=== PATIENT | female | born 1935 | race Caucasian/White ===

== ENCOUNTER 2016-03-31 10:30 | Inpatient (IN) | payer OTHER, BC ==
[~2016-03-31] VITALS: Ht 172.7 cm; Wt 58.3 kg
[2016-03-31] VITALS (8 sets, daily range): BP systolic 120–149; BP diastolic 40–62
[2016-03-31] MEDS ORDERED: TELMISARTAN40 MG PO (11:13)
[2016-03-31] MEDS ORDERED: HYDROCHLOROTHIA25 MG PO (11:14)
[2016-03-31] MEDS ORDERED: ATORVASTATIN CA20 MG PO (11:14)
[2016-03-31] MEDS ORDERED: ASPIR 8181 M1 PO (11:14)
[2016-03-31 13:32] LABS: HEMATOCRIT 32.3 % (36.0-46.0); MCH 30.4 PG (29.0-34.0); MCHC 34.7 G/DL (30.0-36.0); MCV 87.5 FL (83-99); MEAN PLAT.VOLUME 9.6 uM^3 (9.5-12.4); PLATELET COUNT 327 K/uL (156-360); RBC DIS.WIDTH-CV 12.3 % (11.8-14.6); RBC DIS.WIDTH-SD 37.9 % (39-53); RED BLOOD COUNT 3.69 M/uL (3.80-5.20); WHITE BLOOD COUNT 22.9 K/uL (4.1-10.2)
[2016-03-31 13:35] LABS: EOSINOPHIL (%) 0 % (0-5); IMMATURE GRANULOCYTE (%) 0.2 % (0.0-0.7); IMMATURE GRANULOCYTE COUNT 0.5 K/uL; LYMPHOCYTE COUNT 1.2 K/uL (1.0-2.8); MONOCYTE COUNT 1.2 K/uL (0-0.8); NEUTROPHIL (%) 89.7 % (45-76); NEUTROPHIL COUNT 20.5 K/uL (1.8-6.4)
[2016-03-31 13:40] LABS: CHLORIDE 103 mEq/L (99-109); POTASSIUM 3.3 mEq/L (3.7-5.4); SODIUM 139 mEq/L (136-147)
[2016-03-31 13:42] LABS: GLUCOSE 145 mg/dL (70-99); INTER. NORMALIZED RATIO 1.1; PROTHROMBIN TIME 10.9 (9.2-11.2)
[2016-03-31 13:43] LABS: ANION GAP 15 MEQ/L (2-14)
[2016-03-31 13:46] LABS: GFR ESTIMATE (CALCULATED) 46 mL/min/
[2016-03-31 13:47] LABS: UREA NITROGEN (BUN) 24 mg/dL (9-23)
[2016-03-31] MEDS ORDERED: DAILY VITE1 EAC1 PO (13:55)
[2016-03-31] MEDS ORDERED: EYE VITAMIN-MI1 EACH PO (13:55)
[2016-03-31] MEDS ORDERED: COLACE100 MG PO (13:56)
[2016-03-31] MEDS ORDERED: RANITIDINE HCL150 MG PO (13:57)
[2016-03-31] MEDS ORDERED: TUMS500 MG PO (13:59)
[2016-03-31] MEDS ORDERED: VITAMIN D31000 UNIT PO (14:00)
[2016-03-31 17:03] LABS: METH RESISTANT S AUREUS PCR NEGATIVE (NEGATIVE)
[2016-03-31 17:10] LABS: PROBE CHECK PASS; SPECIMEN PROCESSING CONTROL PASS
[2016-04-01] VITALS (24 sets, daily range): BP systolic 100–151; BP diastolic 34–89
[2016-04-01 06:38] LABS: HEMATOCRIT 28.6 % (36.0-46.0); MCH 30.1 PG (29.0-34.0); MCHC 34.3 G/DL (30.0-36.0); MCV 87.7 FL (83-99); MEAN PLAT.VOLUME 10.1 uM^3 (9.5-12.4); PLATELET COUNT 272 K/uL (156-360); RBC DIS.WIDTH-CV 12.5 % (11.8-14.6); RBC DIS.WIDTH-SD 38.8 % (39-53); RED BLOOD COUNT 3.26 M/uL (3.80-5.20); WHITE BLOOD COUNT 18.9 K/uL (4.1-10.2)
[2016-04-01 07:36] LABS: ALKALINE PHOSPHATASE 69 IU/L (3-129); ANION GAP 14 MEQ/L (2-14); CHLORIDE 104 MEQ/L (99-109); GFR ESTIMATE (CALCULATED) 51 mL/min/; GLUCOSE 111 mg/dL (70-99); POTASSIUM 3.5 MEQ/L (3.7-5.4); SAMPLE HEMOLYSIS CHECK 0; SAMPLE ICTERIC CHECK 0; SAMPLE LIPEMIA CHECK 0; SODIUM 140 MEQ/L (136-147); TOTAL BILIRUBIN 0.5 MG/DL (0.0-1.0); UREA NITROGEN (BUN) 20 mg/dL (9-23)
[2016-04-01 15:59] LABS: Estimated Average Glucose 105 mg/dL (70-123); HEMOGLOBIN A1c (GLYCOHEMOGLOB) 5.3 % HGB (Below 5.7)
[2016-04-02] VITALS (11 sets, daily range): BP systolic 91–151; BP diastolic 30–49
[2016-04-02 05:49] LABS: HEMATOCRIT 26.1 % (36.0-46.0); MCH 29.8 PG (29.0-34.0); MCHC 33.3 G/DL (30.0-36.0); MCV 89.4 FL (83-99); MEAN PLAT.VOLUME 10.2 uM^3 (9.5-12.4); PLATELET COUNT 215 K/uL (156-360); RBC DIS.WIDTH-SD 42.1 % (39-53); RED BLOOD COUNT 2.92 M/uL (3.80-5.20); WHITE BLOOD COUNT 18.9 K/uL (4.1-10.2)
[2016-04-02 06:15] LABS: ANION GAP 8 MEQ/L (2-14); CHLORIDE 108 MEQ/L (99-109); GFR ESTIMATE (CALCULATED) > 59 mL/min/; GLUCOSE 94 mg/dL (70-99); POTASSIUM 3.9 MEQ/L (3.7-5.4); SAMPLE HEMOLYSIS CHECK 0; SAMPLE ICTERIC CHECK 0; SAMPLE LIPEMIA CHECK 0; SODIUM 141 MEQ/L (136-147); UREA NITROGEN (BUN) 17 mg/dL (9-23)
[2016-04-03] VITALS: BP 143/56
[2016-04-03 04:00] VITALS: BP 124/39
[2016-04-03 05:35] LABS: HEMATOCRIT 27.9 % (36.0-46.0); MCH 29.5 PG (29.0-34.0); MCV 89.4 FL (83-99); MEAN PLAT.VOLUME 10.2 uM^3 (9.5-12.4); PLATELET COUNT 203 K/uL (156-360); RBC DIS.WIDTH-SD 42.1 % (39-53); RED BLOOD COUNT 3.12 M/uL (3.80-5.20); WHITE BLOOD COUNT 14.6 K/uL (4.1-10.2)
[2016-04-03 05:55] LABS: ANION GAP 9 MEQ/L (2-14); CHLORIDE 108 MEQ/L (99-109); GFR ESTIMATE (CALCULATED) > 59 mL/min/; GLUCOSE 76 mg/dL (70-99); POTASSIUM 3.7 MEQ/L (3.7-5.4); SAMPLE HEMOLYSIS CHECK 0; SAMPLE ICTERIC CHECK 0; SAMPLE LIPEMIA CHECK 0; SODIUM 142 MEQ/L (136-147); UREA NITROGEN (BUN) 18 mg/dL (9-23)
[2016-04-03 08:00] VITALS: BP 157/53
[2016-04-03 12:00] VITALS: BP 165/55
[2016-04-03 16:00] VITALS: BP 161/53
[2016-04-03 20:00] VITALS: BP 168/45
[2016-04-04] VITALS (7 sets, daily range): BP systolic 160–197; BP diastolic 54–65
[2016-04-05] VITALS (10 sets, daily range): BP systolic 120–186; BP diastolic 38–66
[2016-04-05 06:00] LABS: HEMATOCRIT 32.2 % (36.0-46.0); MCH 30.2 PG (29.0-34.0); MCHC 34.5 G/DL (30.0-36.0); MCV 87.5 FL (83-99); RBC DIS.WIDTH-CV 12.6 % (11.8-14.6); RBC DIS.WIDTH-SD 40.4 % (39-53); RED BLOOD COUNT 3.68 M/uL (3.80-5.20); WHITE BLOOD COUNT 13.2 K/uL (4.1-10.2)
[2016-04-05 06:20] LABS: MEAN PLAT.VOLUME 10.1 uM^3 (9.5-12.4)
[2016-04-05 06:22] LABS: PLATELET COUNT 311 K/uL (156-360)
[2016-04-05 06:31] LABS: ANION GAP 8 MEQ/L (2-14); CHLORIDE 101 MEQ/L (99-109); GFR ESTIMATE (CALCULATED) > 59 mL/min/; POTASSIUM 3.5 MEQ/L (3.7-5.4); SAMPLE HEMOLYSIS CHECK 0; SAMPLE ICTERIC CHECK 0; SAMPLE LIPEMIA CHECK 0; SODIUM 139 MEQ/L (136-147); UREA NITROGEN (BUN) 11 mg/dL (9-23)
[2016-04-05 06:32] LABS: GLUCOSE 126 mg/dL (70-99)
[2016-04-05 15:55] LABS: MAGNESIUM 1.7 mg/dl (1.3-2.7)
[2016-04-06] VITALS (14 sets, daily range): BP systolic 130–198; BP diastolic 40–74
[2016-04-06 06:02] LABS: EOSINOPHIL (%) 1.2 % (0-5); EOSINOPHIL COUNT 0.2 K/uL (0-0.3); HEMATOCRIT 29.6 % (36.0-46.0); IMMATURE GRANULOCYTE (%) 0.5 % (0.0-0.7); IMMATURE GRANULOCYTE COUNT 0.1 K/uL; LYMPHOCYTE COUNT 1.7 K/uL (1.0-2.8); MCH 29.2 PG (29.0-34.0); MCHC 33.4 G/DL (30.0-36.0); MCV 87.3 FL (83-99); MEAN PLAT.VOLUME 9.8 uM^3 (9.5-12.4); MONOCYTE (%) 11.4 % (3-12); MONOCYTE COUNT 1.5 K/uL (0-0.8); NEUTROPHIL (%) 73.5 % (45-76); NEUTROPHIL COUNT 9.5 K/uL (1.8-6.4); NRBC (%) 0.2 /100 WBC (0-0); PLATELET COUNT 281 K/uL (156-360); RBC DIS.WIDTH-CV 12.9 % (11.8-14.6); RBC DIS.WIDTH-SD 41.4 % (39-53); RED BLOOD COUNT 3.39 M/uL (3.80-5.20); WHITE BLOOD COUNT 12.9 K/uL (4.1-10.2)
[2016-04-06 06:31] LABS: ALKALINE PHOSPHATASE 68 IU/L (3-129); ANION GAP 9 MEQ/L (2-14); CHLORIDE 104 MEQ/L (99-109); GFR ESTIMATE (CALCULATED) > 59 mL/min/; GLUCOSE 114 mg/dL (70-99); POTASSIUM 4.1 MEQ/L (3.7-5.4); SAMPLE HEMOLYSIS CHECK 0; SAMPLE ICTERIC CHECK 0; SAMPLE LIPEMIA CHECK 0; SODIUM 139 MEQ/L (136-147); UREA NITROGEN (BUN) 15 mg/dL (9-23)
[2016-04-06 06:32] LABS: TOTAL BILIRUBIN 0.7 MG/DL (0.0-1.0)
[2016-04-07] VITALS (12 sets, daily range): BP systolic 119–197; BP diastolic 43–81
[2016-04-07 05:57] LABS: MCH 28.9 PG (29.0-34.0); MCHC 32.8 G/DL (30.0-36.0); MCV 88.1 FL (83-99); MEAN PLAT.VOLUME 9.7 uM^3 (9.5-12.4); PLATELET COUNT 314 K/uL (156-360); RBC DIS.WIDTH-CV 13.2 % (11.8-14.6); RBC DIS.WIDTH-SD 42.6 % (39-53); RED BLOOD COUNT 3.29 M/uL (3.80-5.20); WHITE BLOOD COUNT 13.1 K/uL (4.1-10.2)
[2016-04-07 06:22] LABS: ANION GAP 8 MEQ/L (2-14); CHLORIDE 106 MEQ/L (99-109); GFR ESTIMATE (CALCULATED) 57 mL/min/; GLUCOSE 109 mg/dL (70-99); MAGNESIUM 1.7 mg/dl (1.3-2.7); POTASSIUM 3.8 MEQ/L (3.7-5.4); PREALBUMIN 12.5 mg/dL (10-40); SAMPLE HEMOLYSIS CHECK 0; SAMPLE ICTERIC CHECK 0; SAMPLE LIPEMIA CHECK 0; SODIUM 139 MEQ/L (136-147); UREA NITROGEN (BUN) 15 mg/dL (9-23)
[2016-04-08 00:13] VITALS: BP 160/60
[2016-04-08 06:16] LABS: EOSINOPHIL (%) 2.9 % (0-5); EOSINOPHIL COUNT 0.4 K/uL (0-0.3); HEMATOCRIT 27.9 % (36.0-46.0); IMMATURE GRANULOCYTE (%) 0.7 % (0.0-0.7); IMMATURE GRANULOCYTE COUNT 0.1 K/uL; LYMPHOCYTE COUNT 2.2 K/uL (1.0-2.8); MCH 29.1 PG (29.0-34.0); MCV 88.3 FL (83-99); MEAN PLAT.VOLUME 9.4 uM^3 (9.5-12.4); MONOCYTE (%) 9.4 % (3-12); MONOCYTE COUNT 1.2 K/uL (0-0.8); NEUTROPHIL (%) 68.8 % (45-76); NEUTROPHIL COUNT 8.4 K/uL (1.8-6.4); PLATELET COUNT 291 K/uL (156-360); RBC DIS.WIDTH-CV 13.3 % (11.8-14.6); RBC DIS.WIDTH-SD 43.1 % (39-53); RED BLOOD COUNT 3.16 M/uL (3.80-5.20); WHITE BLOOD COUNT 12.2 K/uL (4.1-10.2)
[2016-04-08 06:18] VITALS: BP 142/70
[2016-04-08 07:11] LABS: ALKALINE PHOSPHATASE 69 IU/L (3-129); ANION GAP 8 MEQ/L (2-14); CHLORIDE 105 MEQ/L (99-109); GFR ESTIMATE (CALCULATED) > 59 mL/min/; GLUCOSE 126 mg/dL (70-99); GLUCOSE 127 mg/dL (70-99); POTASSIUM 3.8 MEQ/L (3.7-5.4); SAMPLE HEMOLYSIS CHECK 0; SAMPLE ICTERIC CHECK 0; SAMPLE LIPEMIA CHECK 0; SODIUM 137 MEQ/L (136-147); SODIUM 138 MEQ/L (136-147); TRIGLYCERIDES 66 MG/DL (Normal: <150); UREA NITROGEN (BUN) 16 mg/dL (9-23)
[2016-04-08 07:20] LABS: MAGNESIUM 2.3 mg/dl (1.3-2.7); TOTAL BILIRUBIN 0.5 MG/DL (0.0-1.0)
[2016-04-08 08:32] VITALS: BP 138/52
[2016-04-08 17:18] VITALS: BP 154/76
[2016-04-08] MEDS ORDERED: ANTIVERT25 MG PO (17:49)
[2016-04-08] MEDS ORDERED: NIFEREX-150,FE150 MG PO (17:49)
[2016-04-08] MEDS ORDERED: CARDIZEM CD,CA240 MG PO (17:49)
[2016-04-08] MEDS ORDERED: METOCLOPRAMIDE10 MG PO (17:49)
[2016-04-08] MEDS ORDERED: APRESOLINE25 MG PO (17:49)
[2016-04-08] MEDS ORDERED: TRAMADOL HCL50 MG PO (17:49)
[2016-04-08] MEDS ORDERED: TYLENOL REGULA325 MG PO (17:49)
[2016-04-08 20:02] VITALS: BP 156/67
[2016-04-08 23:44] VITALS: BP 140/54
[2016-04-09 03:39] VITALS: BP 176/76
[2016-04-09 06:25] LABS: EOSINOPHIL (%) 1.1 % (0-5); EOSINOPHIL COUNT 0.1 K/uL (0-0.3); HEMATOCRIT 26.4 % (36.0-46.0); IMMATURE GRANULOCYTE (%) 0.6 % (0.0-0.7); IMMATURE GRANULOCYTE COUNT 0.1 K/uL; LYMPHOCYTE COUNT 1.5 K/uL (1.0-2.8); MCH 30.3 PG (29.0-34.0); MCHC 33.7 G/DL (30.0-36.0); MCV 89.8 FL (83-99); MEAN PLAT.VOLUME 9.9 uM^3 (9.5-12.4); MONOCYTE (%) 10.6 % (3-12); MONOCYTE COUNT 1.2 K/uL (0-0.8); NEUTROPHIL (%) 74.7 % (45-76); NEUTROPHIL COUNT 8.7 K/uL (1.8-6.4); PLATELET COUNT 284 K/uL (156-360); RBC DIS.WIDTH-CV 13.5 % (11.8-14.6); RED BLOOD COUNT 2.94 M/uL (3.80-5.20); WHITE BLOOD COUNT 11.6 K/uL (4.1-10.2)
[2016-04-09 06:48] LABS: ANION GAP 9 MEQ/L (2-14); CHLORIDE 107 MEQ/L (99-109); GFR ESTIMATE (CALCULATED) > 59 mL/min/; GLUCOSE 130 mg/dL (70-99); MAGNESIUM 2.2 mg/dl (1.3-2.7); POTASSIUM 4.3 MEQ/L (3.7-5.4); SAMPLE HEMOLYSIS CHECK 0; SAMPLE ICTERIC CHECK 0; SAMPLE LIPEMIA CHECK 0; SODIUM 140 MEQ/L (136-147); UREA NITROGEN (BUN) 23 mg/dL (9-23)
[2016-04-09 08:09] VITALS: BP 140/85
[2016-04-09 11:22] VITALS: BP 146/65
[2016-04-09] MEDS ORDERED: LOSARTAN POTASS50 MG PO (14:02)
[2016-04-09] MEDS ORDERED: SALINE FLUSH 1010 ML IV (14:03)
[2016-04-09] MEDS ORDERED: VITAMIN D31000 UNIT PO (14:06)
[2016-04-09] MEDS ORDERED: POLY-IRON150 MG PO (14:07)
[2016-04-09] MEDS ORDERED: TUMS500 MG PO (14:11)
[2016-04-09] MEDS ORDERED: ZOFRAN4 MG PO (14:57)
[2016-04-09] MEDS ORDERED: ZOFRAN4 MG/2 ML IM (14:57)
== END 2016-04-09 12:45 | DRG 86 ==
LOC: EME → EDBD 10:30 → 4WEST 14:21 → 3EAST 14:21 → EDOF 14:21 → 4WEST 15:38 → 3EAST 04-07 05:10
PROVIDERS: Emergency Medicine; Hospitalist; Internal Medicine; Internal Medicine Critical Care Medicine; Internal Medicine Pulmonary Disease; Physician Assistant; Surgery
PROC: F07M0ZZ Range of Motion and Joint Mobility Treatment of Musculoskeletal System - Whole Body (ICD-10-PCS; 2016-04-03)
PROC: 3E0436Z Introduction of Nutritional Substance into Central Vein, Percutaneous Approach (ICD-10-PCS; principal; 2016-04-07)
DX: S06.6X0A Traumatic subarachnoid hemorrhage without loss of consciousness, initial encounter (principal); E44.0 Moderate protein-calorie malnutrition; S06.5X1A Traumatic subdural hemorrhage with loss of consciousness of 30 minutes or less, initial encounter; S02.101A Fracture of base of skull, right side, initial encounter for closed fracture; E78.5 Hyperlipidemia, unspecified; W00.0XXA Fall on same level due to ice and snow, initial encounter; M19.90 Unspecified osteoarthritis, unspecified site; E87.6 Hypokalemia; K21.9 Gastro-esophageal reflux disease without esophagitis; R73.9 Hyperglycemia, unspecified; D64.9 Anemia, unspecified; I16.0 Hypertensive urgency; D72.829 Elevated white blood cell count, unspecified; H53.8 Other visual disturbances; I25.10 Atherosclerotic heart disease of native coronary artery without angina pectoris; I48.0 Paroxysmal atrial fibrillation; R11.2 Nausea with vomiting, unspecified; Z68.20 Body mass index [BMI] 20.0-20.9, adult; Z85.22 Personal history of malignant neoplasm of nasal cavities, middle ear, and accessory sinuses
CPT/HCPCS: 70450; 70486; 70553; 71010; 72125; 72131; 76770; 76937; 80048; 80053; 81003; 82040; 83036; 83735; 84100; 84134; 84478; 84630 90; 85025; 85027; 85610; 86850; 86900; 86901; 87641; 92523 GN; 93005; 93306; 97530 GO; 97530 GP; 97532 GN; 99281; 99285; J0360; J1953; J2270; J2405; J3475; J7030; J7040; J7050

== ENCOUNTER 2016-04-06 09:10 | Inpatient (IN) | payer OTHER, BC ==
[~2016-04-06] VITALS: Ht 172.7 cm; Wt 61.3 kg
[~2016-04-06 09:10] MED LIST: ASPIR 8181 M1 PO; ATORVASTATIN CA20 MG PO; COLACE100 MG PO; DAILY VITE1 EAC1 PO; EYE VITAMIN-MI1 EACH PO; HYDROCHLOROTHIA25 MG PO; RANITIDINE HCL150 MG PO; TELMISARTAN40 MG PO; TUMS500 MG PO; VITAMIN D31000 UNIT PO
[2016-04-08] MEDS ORDERED: ANTIVERT25 MG PO (17:49)
[2016-04-08] MEDS ORDERED: NIFEREX-150,FE150 MG PO (17:49)
[2016-04-08] MEDS ORDERED: TYLENOL REGULA325 MG PO (17:49)
[2016-04-08] MEDS ORDERED: CARDIZEM CD,CA240 MG PO (17:49)
[2016-04-08] MEDS ORDERED: METOCLOPRAMIDE10 MG PO (17:49)
[2016-04-08] MEDS ORDERED: APRESOLINE25 MG PO (17:49)
[2016-04-08] MEDS ORDERED: TRAMADOL HCL50 MG PO (17:49)
[2016-04-09 12:55] VITALS: BP 179/78
[2016-04-09] MEDS ORDERED: LOSARTAN POTASS50 MG PO (14:02)
[2016-04-09] MEDS ORDERED: SALINE FLUSH 1010 ML IV (14:03)
[2016-04-09] MEDS ORDERED: VITAMIN D31000 UNIT PO (14:06)
[2016-04-09] MEDS ORDERED: POLY-IRON150 MG PO (14:07)
[2016-04-09] MEDS ORDERED: TUMS500 MG PO (14:11)
[2016-04-09] MEDS ORDERED: ZOFRAN4 MG/2 ML IM (14:57)
[2016-04-09] MEDS ORDERED: ZOFRAN4 MG PO (14:57)
[2016-04-09 17:07] VITALS: BP 178/75
[2016-04-09 23:47] VITALS: BP 176/73
[2016-04-10 05:49] LABS: HEMATOCRIT 27.1 % (36.0-46.0); MCH 29.9 PG (29.0-34.0); MCHC 33.2 G/DL (30.0-36.0); MEAN PLAT.VOLUME 9.8 uM^3 (9.5-12.4); PLATELET COUNT 317 K/uL (156-360); RBC DIS.WIDTH-CV 13.6 % (11.8-14.6); RBC DIS.WIDTH-SD 44.6 % (39-53); RED BLOOD COUNT 3.01 M/uL (3.80-5.20); WHITE BLOOD COUNT 12.2 K/uL (4.1-10.2)
[2016-04-10 05:50] VITALS: BP 175/76
[2016-04-10 06:21] LABS: ALKALINE PHOSPHATASE 68 IU/L (3-129); ANION GAP 10 MEQ/L (2-14); CHLORIDE 108 MEQ/L (99-109); GFR ESTIMATE (CALCULATED) > 59 mL/min/; GLUCOSE 118 mg/dL (70-99); POTASSIUM 4.1 MEQ/L (3.7-5.4); SAMPLE HEMOLYSIS CHECK 0; SAMPLE ICTERIC CHECK 0; SAMPLE LIPEMIA CHECK 0; SODIUM 141 MEQ/L (136-147); TOTAL BILIRUBIN 0.4 MG/DL (0.0-1.0); UREA NITROGEN (BUN) 25 mg/dL (9-23)
[2016-04-10 07:55] LABS: MAGNESIUM 1.9 mg/dl (1.3-2.7)
[2016-04-10 07:57] VITALS: BP 134/60
[2016-04-10 13:40] VITALS: BP 154/69
[2016-04-10 16:03] VITALS: BP 136/74
[2016-04-11 04:26] LABS: CHLORIDE 109 mEq/L (99-109); MAGNESIUM 1.8 mg/dL (1.3-2.7); POTASSIUM 3.8 mEq/L (3.7-5.4); SODIUM 138 mEq/L (136-147)
[2016-04-11 04:28] LABS: GLUCOSE 142 mg/dL (70-99)
[2016-04-11 04:29] LABS: ANION GAP 10 MEQ/L (2-14)
[2016-04-11 04:32] LABS: GFR ESTIMATE (CALCULATED) > 59 mL/min/; UREA NITROGEN (BUN) 27 mg/dL (9-23)
[2016-04-11 05:45] VITALS: BP 169/72
[2016-04-11 16:30] VITALS: BP 151/66
[2016-04-12 05:46] VITALS: BP 147/65
[2016-04-12 06:05] LABS: EOSINOPHIL (%) 2.1 % (0-5); EOSINOPHIL COUNT 0.3 K/uL (0-0.3); HEMATOCRIT 24.9 % (36.0-46.0); IMMATURE GRANULOCYTE (%) 0.3 % (0.0-0.7); LYMPHOCYTE COUNT 1.9 K/uL (1.0-2.8); MCH 30.1 PG (29.0-34.0); MCHC 33.3 G/DL (30.0-36.0); MCV 90.2 FL (83-99); MEAN PLAT.VOLUME 9.4 uM^3 (9.5-12.4); MONOCYTE (%) 8.8 % (3-12); MONOCYTE COUNT 1.1 K/uL (0-0.8); NEUTROPHIL (%) 73.4 % (45-76); NEUTROPHIL COUNT 9.1 K/uL (1.8-6.4); PLATELET COUNT 297 K/uL (156-360); RBC DIS.WIDTH-CV 13.6 % (11.8-14.6); RBC DIS.WIDTH-SD 44.5 % (39-53); RED BLOOD COUNT 2.76 M/uL (3.80-5.20); WHITE BLOOD COUNT 12.5 K/uL (4.1-10.2)
[2016-04-12 06:31] LABS: ALKALINE PHOSPHATASE 81 IU/L (3-129); ANION GAP 9 MEQ/L (2-14); CHLORIDE 109 MEQ/L (99-109); DIRECT BILIRUBIN 0.1 mg/dL (0.0-0.3); GFR ESTIMATE (CALCULATED) > 59 mL/min/; GLUCOSE 112 mg/dL (70-99); POTASSIUM 4.2 MEQ/L (3.7-5.4); PREALBUMIN 15.2 mg/dL (10-40); SAMPLE HEMOLYSIS CHECK 0; SAMPLE ICTERIC CHECK 0; SAMPLE LIPEMIA CHECK 0; SODIUM 141 MEQ/L (136-147); TRIGLYCERIDES 64 MG/DL (Normal: <150); UREA NITROGEN (BUN) 28 mg/dL (9-23)
[2016-04-12 06:32] LABS: TOTAL BILIRUBIN 0.3 MG/DL (0.0-1.0)
[2016-04-12 09:30] VITALS: BP 138/63
[2016-04-12 15:47] VITALS: BP 120/56
[2016-04-13 04:49] LABS: CHLORIDE 110 mEq/L (99-109); POTASSIUM 4.4 mEq/L (3.7-5.4); SODIUM 137 mEq/L (136-147)
[2016-04-13 04:51] LABS: GLUCOSE 121 mg/dL (70-99)
[2016-04-13 04:53] LABS: ANION GAP 5 MEQ/L (2-14)
[2016-04-13 04:55] LABS: GFR ESTIMATE (CALCULATED) > 59 mL/min/
[2016-04-13 04:56] LABS: UREA NITROGEN (BUN) 33 mg/dL (9-23)
[2016-04-13 05:35] VITALS: BP 150/60
[2016-04-13 15:31] VITALS: BP 157/59
[2016-04-14 06:03] VITALS: BP 146/77
[2016-04-14 07:21] LABS: ANION GAP 8 MEQ/L (2-14); CHLORIDE 108 MEQ/L (99-109); GFR ESTIMATE (CALCULATED) > 59 mL/min/; GLUCOSE 95 mg/dL (70-99); MAGNESIUM 1.8 mg/dl (1.3-2.7); POTASSIUM 3.8 MEQ/L (3.7-5.4); SAMPLE HEMOLYSIS CHECK 0; SAMPLE ICTERIC CHECK 0; SAMPLE LIPEMIA CHECK 0; SODIUM 138 MEQ/L (136-147); UREA NITROGEN (BUN) 26 mg/dL (9-23)
[2016-04-14 14:44] LABS: URINE UREA NITROGEN 8333 MG/24 HR
[2016-04-14 15:10] VITALS: BP 128/61
[2016-04-15 05:05] VITALS: BP 146/66
[2016-04-15 15:20] VITALS: BP 119/53
[2016-04-16 05:35] LABS: HEMATOCRIT 25.5 % (36.0-46.0); MCH 29.7 PG (29.0-34.0); MCHC 32.9 G/DL (30.0-36.0); MCV 90.1 FL (83-99); RBC DIS.WIDTH-CV 13.1 % (11.8-14.6); RED BLOOD COUNT 2.83 M/uL (3.80-5.20); WHITE BLOOD COUNT 9.9 K/uL (4.1-10.2)
[2016-04-16 05:45] LABS: CHLORIDE 107 mEq/L (99-109); POTASSIUM 4.1 mEq/L (3.7-5.4); SODIUM 138 mEq/L (136-147)
[2016-04-16 05:47] VITALS: BP 143/87
[2016-04-16 05:47] LABS: GLUCOSE 127 mg/dL (70-99)
[2016-04-16 05:49] LABS: ANION GAP 8 MEQ/L (2-14); TOTAL BILIRUBIN 0.3 mg/dL (0.0-1.0)
[2016-04-16 05:51] LABS: ALKALINE PHOSPHATASE 147 IU/L (3-129); GFR ESTIMATE (CALCULATED) 57 mL/min/; MEAN PLAT.VOLUME 9.3 uM^3 (9.5-12.4); PLATELET COUNT 396 K/uL (156-360)
[2016-04-16 05:52] LABS: UREA NITROGEN (BUN) 18 mg/dL (9-23)
[2016-04-16 09:10] VITALS: BP 146/67
[2016-04-16 16:17] VITALS: BP 123/56
[2016-04-17 05:31] VITALS: BP 128/61
[2016-04-17 17:06] VITALS: BP 163/69
[2016-04-18 05:53] VITALS: BP 124/58
[2016-04-18 16:00] VITALS: BP 158/69
[2016-04-19 05:38] VITALS: BP 126/57
[2016-04-19 15:46] VITALS: BP 138/63
[2016-04-20 05:26] VITALS: BP 130/60
[2016-04-20 15:11] VITALS: BP 120/69
[2016-04-21 05:52] VITALS: BP 136/63
[2016-04-21] MEDS ORDERED: COLACE100 MG PO (14:31)
[2016-04-21] MEDS ORDERED: APRESOLINE25 MG PO (14:31)
[2016-04-21] MEDS ORDERED: DILTIAZEM 24HR180 MG PO (14:31)
[2016-04-21] MEDS ORDERED: ANTIVERT25 MG PO (14:31)
[2016-04-21] MEDS ORDERED: NIFEREX-150,FE150 MG PO (14:31)
[2016-04-21] MEDS ORDERED: LOSARTAN POTASS25 MG PO (14:31)
[2016-04-21 15:21] VITALS: BP 121/63
[2016-04-21 15:39] LABS: ALKALINE PHOSPHATASE 142 IU/L (3-129); ANION GAP 8 MEQ/L (2-14); CHLORIDE 103 MEQ/L (99-109); GFR ESTIMATE (CALCULATED) 36 mL/min/; GLUCOSE 104 mg/dL (70-99); POTASSIUM 4.4 MEQ/L (3.7-5.4); SAMPLE HEMOLYSIS CHECK 0; SAMPLE ICTERIC CHECK 0; SAMPLE LIPEMIA CHECK 0; SODIUM 138 MEQ/L (136-147); TOTAL BILIRUBIN 0.3 MG/DL (0.0-1.0); UREA NITROGEN (BUN) 23 mg/dL (9-23)
[2016-04-21 15:42] LABS: MCH 29.3 PG (29.0-34.0); MCHC 32.2 G/DL (30.0-36.0); MCV 90.9 FL (83-99); MEAN PLAT.VOLUME 9.6 uM^3 (9.5-12.4); PLATELET COUNT 417 K/uL (156-360); RBC DIS.WIDTH-CV 13.6 % (11.8-14.6); RBC DIS.WIDTH-SD 45.1 % (39-53); RED BLOOD COUNT 2.97 M/uL (3.80-5.20)
[2016-04-21 15:43] LABS: WHITE BLOOD COUNT 6.7 K/uL (4.1-10.2)
[2016-04-22 05:08] VITALS: BP 122/57
== END 2016-04-22 13:50 | disposition home health service (06) | DRG 945 ==
LOC: 3WEST 09:10
PROVIDERS: Physical Medicine & Rehabilitation Pain Medicine; Physician Assistant
DX: S06.6X0D Traumatic subarachnoid hemorrhage without loss of consciousness, subsequent encounter (principal); E44.0 Moderate protein-calorie malnutrition; I10 Essential (primary) hypertension; R26.2 Difficulty in walking, not elsewhere classified; K21.9 Gastro-esophageal reflux disease without esophagitis; R73.03 Prediabetes; S06.5X0D Traumatic subdural hemorrhage without loss of consciousness, subsequent encounter; S02.119D Unspecified fracture of occiput, subsequent encounter for fracture with routine healing; I48.91 Unspecified atrial fibrillation; M47.892 Other spondylosis, cervical region; E88.09 Other disorders of plasma-protein metabolism, not elsewhere classified; E87.6 Hypokalemia; D64.9 Anemia, unspecified; W00.0XXD Fall on same level due to ice and snow, subsequent encounter
CPT/HCPCS: 70450; 72100; 72125; 73521; 80048; 80053; 81050; 82248; 83735; 84100; 84134; 84478; 84540; 84630 90; 85025; 85027; 96125 GN; 97530 GP; 97532 GN